=== PATIENT | female | born 1960 | race Caucasian/White ===

== ENCOUNTER 2017-03-11 08:17 | Emergency (ER) | payer BC ==
[~2017-03-11] VITALS: Ht 157.5 cm; Wt 70.0 kg
[2017-03-11 09:05] VITALS: BP 148/68
--- NOTE | 2017-03-11 09:11 | NUR ---
NO BEDS AVAILABLE AT THIS TIME, PT AMBULATES TO THE LOBBY WITHOUT DIFFICULTY
--- NOTE | 2017-03-11 10:05 | NUR ---
Pt taken to bed 3.
[2017-03-11] MEDS ORDERED: MECLIZINE 25 MG TAB PO ONE (10:10)
--- NOTE | 2017-03-11 10:20 | NUR ---
Patient being evaluated by Dr. Valdez at bedside.
--- NOTE | 2017-03-11 10:31 | NUR ---
PAIENT IN BED #3 WITH SON. C/O DIZZINESS X4 WEEKS. NO NAUSEA OR VOMITING. DIZZINESS OCCURS AT NO PARTICULAR TIME. DESCRIBED GETTING DIZZINESS DURING AM, PM, DURING INTENSE EMOTIONAL RESPONSE. NO PATTERN TO DIZZINESS NOTED. NOTIFIED
--- NOTE | 2017-03-11 11:25 | NUR ---
PATIENT COMFORTABLY RESTING IN BED WITH EYES OPEN. SON AT [facility].
[2017-03-11 11:57] VITALS: BP 127/70
--- NOTE | 2017-03-11 11:58 | NUR ---
DPatient discharged with v/s stable. Written and verbal after care instructions given and explained. Patient alert, oriented and verbalized understanding of instructions. Ambulatory with steady gait. All questions addressed prior to discharge. ID band removed. Patient advised to follow up with PMD. Rx of TRAMADOL given. Patient educated on indication of medication including possible reaction and side effects. Opportunity to ask questions provided and answered.
== END 2017-03-11 11:58 | disposition home or self-care (01) ==
LOC: MED 08:17
DX: R51 Headache (principal); R42 Dizziness and giddiness; H92.03 Otalgia, bilateral
CPT/HCPCS: 70450; 99284; J8597